=== PATIENT | male | born 1990 | race Hispanic/Latino ===

== ENCOUNTER 2020-06-27 12:40 | Emergency (ER) | payer OTHER | END 2020-06-27 14:35 | disposition left against medical advice (07) | LOC: EDH 12:40 | DX: M79.602 Pain in left arm (principal); Z72.0 Tobacco use; Z53.21 Procedure and treatment not carried out due to patient leaving prior to being seen by health care provider ==

== ENCOUNTER 2021-02-07 10:22 | Emergency (ER) | payer SELFPAY ==
[~2021-02-07] VITALS: Ht 175.3 cm; Wt 91.6 kg
[2021-02-07 10:26] VITALS: BP 133/70
[2021-02-07 11:21] LABS: APPEARANCE,URINE Clear (CLEAR); BILIRUBIN,URINE Negative (NEGATIVE); COLOR,URINE Yellow (YELLOW); GLUCOSE, URINE (UA) Negative (NEGATIVE); KETONES,URINE Negative (NEGATIVE); LEUKOCYTE ESTERASE ,URINE Negative (NEGATIVE); NITRATE,URINE Negative (NEGATIVE); OCCULT BLOOD,URINE Negative (NEGATIVE); PROTEIN,URINE Negative (NEGATIVE); UROBILINOGEN,URINE 0.2 mg/dL (0.2-1.0)
[2021-02-07 11:27] LABS: HEMATOCRIT 45.1 % (42-54); MEAN CORPUSCULAR HEMOGLOBIN 30.8 pg (27.0-33.0); MEAN CORPUSCULAR HGB CONC 34.4 g/dL (32.0-36.0); MEAN CORPUSCULAR VOLUME 89.7 fL (79-99); PLATELET COUNT (AUTO) 310 K/uL (130-400); RED BLOOD CELL COUNT(AUTO) 5.03 MIL/uL (4.50-6.20); RED CELL DISTRIBUTION WIDTH 13.7 % (11.0-15.5); WHITE BLOOD COUNT (AUTO) 8.6 K/uL (4.8-10.8)
[2021-02-07 11:31] LABS: CREATININE 0.9 mg/dL (0.5-1.5)
[2021-02-07 11:35] LABS: BILIRUBIN,TOTAL 0.3 mg/dL (0.2-1.0); TOTAL PROTEIN, SERUM 7.8 g/dL (6.0-8.3)
[2021-02-07 12:00] LABS: EOSINOPHILS % (MANUAL) 1 % (1-6); LYMPHOCYTES % (MANUAL) 25 % (22-44); MAN.DIFF COMMENT-IMPRESSION MANUAL DIFFERENTIAL; MONOCYTES % (MANUAL) 8 % (2-9); PLATELET MORPHOLOGY COMMENT ADEQUATE; SEGMENTED NEUTROPHILS % 66 % (40-70)
== END 2021-02-07 13:48 | disposition left against medical advice (07) ==
LOC: EDH 10:22
DX: R19.7 Diarrhea, unspecified (principal); R07.89 Other chest pain
CPT/HCPCS: 36415; 71045; 80053; 81003; 84484; 85025